=== PATIENT | male | born 1950 | race Caucasian/White ===

== ENCOUNTER 2023-04-21 12:05 | Day surgery (SDC) | payer MEDICARE ==
[~2023-04-21] VITALS: Ht 172.7 cm; Wt 74.5 kg
[~2023-04-21 12:05] MED LIST: CYCLOBENZAPRINE10 MG PO; HYDROCHLOROTH12.5 M1 PO; LOSARTAN-HCTZ1 EAC2; NORCO 5-325 TA1 EACH PO; OMEPRAZOLE20 MG PO
[2023-04-21 12:27] VITALS: BP 146/65
[2023-04-21] MEDS ORDERED: [UNRECOGNIZED DRUG - OTHER] PO (12:31)
[2023-04-21] MEDS ORDERED: NORVASC10 MG PO (12:31)
[2023-04-21] MEDS ORDERED: ASPIRIN325 MG PO (12:33)
[2023-04-21 16:18] VITALS: BP 138/96
--- NOTE | 2023-04-21 17:15 | NUR ---
04/21/23 1715 Fadumo Talbot 1410- PT ARRIVES TO PACU, LEFT LATERAL POSITION. REACTIVE TO STIMULUS, LR INFUSING TO RFA IV. PT SNORING LOUDLY WITH PERIODS OF APNEA, REPORTED BASELINE ON ARRIVAL TO DAY SURGERY. PT WAKES AND FOLLOWS COMMANDS TO TAKE DEEP BREATHS. ABD FIRM, ENCOURAGED TO PASS GAS. DENIES PAIN AND NAUSEA. 1415- PT CONTINUES TO SNORE, HEAD OF BED ELEVATED AND PILLOW ADJUSTED TO ASSIST AIRWAY. 1425- PT MORE AWAKE ANSWERING QUESTIONS. CONTINUE TO ENCOURAGE TO PASS GAS. 1437- PT SITTING UP IN BED, DRINKING CRANBERRY JUICE, TOLERATING WELL. PT REPORTS HE IS FEELING PRETTY "NORMAL". 1446- PT SITTING ON SIDE OF BED, DENIES NAUSEA OR DIZZINESS. PT TO GET DRESSED AND CALLED FOR A RIDE. 1500- PT VERBALIZED UNDERSTANDING OF INSTRUCTIONS. SALINE LOCK REMOVED, TIP INTACT, DRESSING APPLIED. PT HAS ALL BELONGINGS, TRANSFERRED TO WHEEL CHAIR WITHOUT DIFFICULTY AND TAKEN OUT TO FAMILY CAR. ALERT AND ORIENTED, NO SIGNS OF DISTRESS.
--- NOTE | 2023-04-22 11:50 | OR ---
[facility] [address], [place] [address] Signed DATE OF OPERATION: 04/21/2023 SURGEON: Elver Ornelas MD PREOPERATIVE DIAGNOSIS: Positive Cologuard test in November 2022. POSTOPERATIVE DIAGNOSES: 1. Small adenoma of transverse colon. 2. Small hyperplastic polyps, rectosigmoid. PROCEDURES: Total colonoscopy to cecum with cold morcellation, polypectomy x4. ANESTHESIA: Intravenous sedation, fentanyl 100 mcg and Versed 5 mg. INDICATIONS FOR THE PROCEDURE: This 72-year-old white man is referred by Dr. William's for consideration of colonoscopy on the basis of positive Cologuard test obtained in November of 2022. The patient has no prior history of colonoscopy or known polyps. No symptoms of bleeding, diarrhea, or constipation and no family history of colon cancer. He is admitted at this time to undergo colonoscopy for the aforementioned reason. He understands the risk of bleeding, infection, and perforation. FINDINGS: The prep was excellent. Complete colonoscopy was undertaken to the cecum. There was a small adenomatous-appearing polyp of the left transverse colon, which was excised. There were three other very small, probably hyperplastic polyps of rectosigmoid also excised. Remaining colon was otherwise normal. DESCRIPTION OF PROCEDURE: The patient was brought to the endoscopy suite and placed in lateral decubitus position given intravenous sedation to the point of slurred speech and nystagmus. Digital rectal examination was normal. An Olympus video colonoscope was passed into the rectum and manipulated throughout the colon noting a small adenomatous appearing polyp in the proximal rather than in the left transverse colon. This was excised with cold morcellation technique. The scope was then advanced further ultimately to the cecum. The ileocecal valve and appendiceal Electronically Signed By: ELVER ORNELAS MD 04/22/23 1150 PATIENT NAME: ELHAM PEDRO OPERATIVE REPORT DATE OF : 54 REPORT #: [id number] PHYSICIAN: ELVER ORNELAS MD PCP: JESSICA WILLIAM MD REPORT IS CONFIDENTIAL AND NOT TO BE RELEASED WITHOUT AUTHORIZATION [facility] [address], [place] [address] Signed orifice were normal. The scope was withdrawn from that point and examination throughout showed no sign of abnormality until the rectosigmoid where there were small hyperplastic-appearing polyps. These were excised with cold morcellation technique, though quite unlikely to account for the Cologuard test finding. The scope on retroflexed view showed no other abnormality. The scope was removed, and the patient taken to the recovery room in good condition. CONCLUDING DIAGNOSIS: Small polyp, left transverse colon excised. PLAN: Recommend repeat colonoscopy in three years or sooner if clinically indicated. He was noted to have a somewhat enlarged prostate, though no actual nodule. I will ascertain whether he has had a PSA test. If he has not, we will order it. If so, continue the prostate monitoring by his primary care provider. MD ALEXIS Guevara/ARTEMIO /[id number] cc: Jessica William MD Copies: JESSICA WILLIAM MD ~ Electronically Signed By: ELVER ORNELAS MD 04/22/23 1150 PATIENT NAME: ELHAM PEDRO OPERATIVE REPORT DATE OF : 54 REPORT #: [id number] PHYSICIAN: ELVER ORNELAS MD PCP: JESSICA WILLIAM MD REPORT IS CONFIDENTIAL AND NOT TO BE RELEASED WITHOUT AUTHORIZATION
--- NOTE | 2023-04-26 10:13 | PATH ---
[facility] [address], [place] [address] Signed SPECIMEN(S): A MID TRANSVERSE POLYP SPECIMEN(S): B RECTOSIGMOID POLYP SPECIMEN SOURCE: A. MID TRANSVERSE POLYP B. RECTOSIGMOID POLYP CLINICAL HISTORY: Positive Cologuard test 823, no prior colonoscopy FINAL PATHOLOGIC DIAGNOSIS: A. Colon, mid transverse, polypectomy: - Tubular adenoma B. Colon, rectosigmoid, polypectomy: - Hyperplastic polyp BRP MICROSCOPIC EXAMINATION: Histologic sections of all submitted blocks are examined by light microscopy. These findings, together with the gross examination, support the pathologic diagnosis. GROSS DESCRIPTION: A. The specimen, labeled and designated "Jennifer, T, " and designated on the requisition "colon, mid transverse polypectomy," is received in formalin and consists of one moon soft polypoid tissue fragment measuring 0.3 cm, the specimen is submitted entirely in (A1). B. The specimen, labeled and designated "Jennifer, T, " and designated on the requisition "colon, rectosigmoid polypectomy," is received in formalin and consists of two moon soft tissue fragments measuring 0.2 to 0.3 cm, both specimens are submitted entirely in (B1). [facility] (under the direct supervision of a pathologist) The Gross Description was prepared using a voice recognition system. The report was reviewed for accuracy; however, sound-alike word errors, addition and/or deletions may occur. If there is any question about this report, please contact Client Services. ADDITIONAL NOTES: Immunohistochemical and/or in situ hybridization studies if performed in this case included appropriate positive controls that reacted as expected. This test was developed and its performance PATIENT NAME: ELHAM PEDRO PATHOLOGY DATE OF : 54 REPORT #: [id number] PHYSICIAN: NEETA OJEDA PCP: JESSICA CENTENO MD REPORT IS CONFIDENTIAL AND NOT TO BE RELEASED WITHOUT AUTHORIZATION [facility] [address], [place] [address] Signed characteristics determined by [facility]. It has not been cleared or approved by the U.S. Food and Drug Administration. The FDA has determined that such clearance or approval is not necessary. This test is used for clinical purposes. It should not be regarded as investigational or for research. [facility] is certified under the Clinical Laboratory Improvement Amendments of 1988 (CLIA) as qualified to perform high complexity clinical laboratory testing. PERFORMING LABORATORY: Technical component was performed by [facility], [address] [place] [address] (CLIA# [id number]). Professional interpretation was performed by [facility], [address] [place] [address] (CLIA#: [id number]). Diagnostician: Alex Corbin MD Pathologist Electronically Signed 04/26/2023 Copies: ~ PATIENT NAME: ELHAM PEDRO PATHOLOGY DATE OF : 54 REPORT #: [id number] PHYSICIAN: NEETA OJEDA PCP: JESSICA CENTENO MD REPORT IS CONFIDENTIAL AND NOT TO BE RELEASED WITHOUT AUTHORIZATION
== END 2023-04-21 15:00 | disposition home or self-care (01) ==
LOC: OPS 12:05 → DS 12:11 → OPS 13:00 → DS 13:00 → OPS 15:00
PROVIDERS: ATTEND Surgery
PROC: 0DBL8ZX Excision of Transverse Colon, Via Natural or Artificial Opening Endoscopic, Diagnostic (ICD-10-PCS; 2023-04-21)
PROC: 0DBN8ZX Excision of Sigmoid Colon, Via Natural or Artificial Opening Endoscopic, Diagnostic (ICD-10-PCS; principal; 2023-04-21 13:00)
DX: Z12.11 Encounter for screening for malignant neoplasm of colon (principal); D12.3 Benign neoplasm of transverse colon; K63.5 Polyp of colon; R19.5 Other fecal abnormalities; R06.83 Snoring; I10 Essential (primary) hypertension; G47.30 Sleep apnea, unspecified; Z79.899 Other long term (current) drug therapy
CPT/HCPCS: 88305; 99153; G0500; J2250; J3010; J7121